=== PATIENT | male | born 1945 | race Caucasian/White ===

== ENCOUNTER 2020-11-17 10:23 | Outpatient (REF) | payer MEDICARE, SELFPAY ==
[2020-11-17 10:52] LABS: Alanine Aminotransferase 17 U/L (0-40); Albumin Level 4.1 g/dL (3.5-5.0); Alkaline Phosphatase 90 U/L (39-117); Aspartate Amino Transferase 17 U/L (5-37); Bilirubin Direct 0.2 mg/dL (0.0-0.5); Bilirubin Total 0.5 mg/dL (0.0-1.0); Cholesterol 195 mg/dL; HDL Cholesterol 59 mg/dL; LDL Cholesterol Calculated 57 mg/dl; Total Protein 6.9 g/dL (6.5-8.0); Triglycerides 395 mg/dL
[2020-11-17 11:14] LABS: Reflex LDLD? No
== END 2020-11-17 10:24 | disposition home or self-care (01) ==
LOC: HO.LNP 10:23
PROVIDERS: Visit Provider Internal Medicine
DX: E78.00 Pure hypercholesterolemia, unspecified (principal)
CPT/HCPCS: 80061; 80076

== ENCOUNTER 2021-05-16 10:26 | Outpatient (REF) | payer MEDICARE, SELFPAY ==
[2021-05-16 10:51] LABS: Basophils Percent Auto 0.6 % (0-2); Eosinophils Absolute Auto 0.2 X10*3/uL (0.0-0.4); Eosinophils Percent Auto 3.2 % (0-4); Hematocrit 51.2 % (42.0-52.0); Hemoglobin 16.5 g/dl (14.0-18.0); Imm Gran Abs Auto 0.02 X10*3/uL (0.00-0.03); Imm Gran Pct Auto 0.3 % (0.0-0.4); Lymphocytes Absolute Auto 1.7 X10*3/uL (1.2-4.9); Lymphocytes Percent Auto 27.3 % (20-40); MANUAL DIFF FLAG SCAN; Mean Corpuscular HGB Conc 32.2 g/dl (31.0-36.0); Mean Corpuscular Hemoglobin 30.1 pg (27.0-33.0); Mean Corpuscular Volume 93.4 fL (80.0-98.0); Monocytes Absolute Auto 0.6 X10*3/uL (0.1-1.2); Monocytes Percent Auto 9.1 % (2-11); Neutrophils Absolute Auto 3.7 x10*3/uL (2.0-8.3); Neutrophils Percent Auto 59.5 % (45-73); PLT CLUMP 1; Red Blood Count 5.48 X10*6/uL (4.60-5.80); Red Cell Distribution Width 14.5 % (11.0-16.0); SCAN SMEAR FLAG 1
[2021-05-16 10:52] LABS: Appearance Urine CLEAR; Color Urine YELLOW; Glucose Urine UA NEG (NEG); Leukocyte Esterase Urine NEG (NEG); Nitrite Urine NEG (NEG); Specific Gravity - Urine >= 1.030 (1.005-1.025); Urine Blood TRACE (NEG); Urine Ketones NEG (NEG); Urine Protein 2+ MG/DL (NEG-TRACE)
[2021-05-16 11:00] LABS: Estimated Average Glucose 123 mg/dL; Hemoglobin A1c % 5.9 %
[2021-05-16 11:06] LABS: Alanine Aminotransferase 22 U/L (0-40); Albumin Level 4.2 g/dL (3.5-5.0); Alkaline Phosphatase 90 U/L (39-117); Anion Gap 16 (12-20); Aspartate Amino Transferase 26 U/L (5-37); Bilirubin Total 0.6 mg/dL (0.0-1.0); Blood Urea Nitrogen 16 mg/dL (9-16); Calcium 9.6 mg/dL (8.4-10.2); Carbon Dioxide 23 mmol/L (22-29); Chloride 103 mmol/L (96-108); Cholesterol 175 mg/dL; Estimated Glomerular Filt Rate > 60; Glucose Fasting 128 mg/dL (60-99); HDL Cholesterol 52 mg/dL; LDL Cholesterol Calculated 67 mg/dl; Potassium 4.7 mmol/L (3.3-5.1); Sodium 137 mmol/L (135-145); Total Protein 7.4 g/dL (6.5-8.0); Triglycerides 280 mg/dL
[2021-05-16 11:09] LABS: Mucus Urine TRACE /LPF; RBC Urine 0-2 /HPF (0); Squamous Epithelial Cell Urine TRACE /LPF; WBC Urine 0 /HPF (0-4)
[2021-05-16 11:12] LABS: White Blood Count 6.3 X10*3/uL (4.8-10.8)
[2021-05-16 11:24] LABS: Creatinine Urine 139.79 mg/dL
[2021-05-16 11:31] LABS: PSA,Total (Free>4and<10) < 0.05 ng/mL (0.00-4.00)
[2021-05-16 11:46] LABS: Microalbum/Creatinine Ratio Ur 1109.5 ug/mg cr
[2021-05-16 14:41] LABS: SLIDE REVIEW VERIFIED
== END 2021-05-16 10:27 | disposition home or self-care (01) ==
LOC: HO.LNP 10:26
PROVIDERS: Visit Provider Internal Medicine
DX: Z12.5 Encounter for screening for malignant neoplasm of prostate (principal); I10 Essential (primary) hypertension; R73.03 Prediabetes; R80.9 Proteinuria, unspecified; E78.00 Pure hypercholesterolemia, unspecified
CPT/HCPCS: 80053; 80061; 81001; 82043; 83036; 84153; 85025

== ENCOUNTER 2021-05-22 14:20 | Outpatient (REF) | payer MEDICARE, SELFPAY ==
[2021-05-22 14:26] LABS: MANUAL DIFF FLAG NO
[2021-05-22 14:55] LABS: Basophils Percent Auto 0.6 % (0-2); Eosinophils Absolute Auto 0.2 X10*3/uL (0.0-0.4); Eosinophils Percent Auto 3.5 % (0-4); Hematocrit 48.6 % (42.0-52.0); Hemoglobin 16.1 g/dl (14.0-18.0); Imm Gran Abs Auto 0.03 X10*3/uL (0.00-0.03); Imm Gran Pct Auto 0.4 % (0.0-0.4); Lymphocytes Percent Auto 29.1 % (20-40); Mean Corpuscular HGB Conc 33.1 g/dl (31.0-36.0); Mean Corpuscular Hemoglobin 30.2 pg (27.0-33.0); Mean Corpuscular Volume 91.2 fL (80.0-98.0); Mean Platelet Volume 10.5 fL (9.4-12.4); Monocytes Absolute Auto 0.7 X10*3/uL (0.1-1.2); Monocytes Percent Auto 9.6 % (2-11); Neutrophils Absolute Auto 3.9 x10*3/uL (2.0-8.3); Neutrophils Percent Auto 56.8 % (45-73); Platelet Count 252 X10*3/uL (160-400); Platelet Count (Citrate) 175 X10*3/uL (150-310); Red Blood Count 5.33 X10*6/uL (4.60-5.80); Red Cell Distribution Width 14.7 % (11.0-16.0); White Blood Count 6.9 X10*3/uL (4.8-10.8)
== END 2021-05-22 14:21 | disposition home or self-care (01) ==
LOC: HO.LNP 14:20
PROVIDERS: Visit Provider Internal Medicine
DX: D69.6 Thrombocytopenia, unspecified (principal)
CPT/HCPCS: 85025

== ENCOUNTER 2021-11-16 10:31 | Outpatient (REF) | payer MEDICARE, SELFPAY ==
[2021-11-16 10:58] LABS: Estimated Average Glucose 126 mg/dL
[2021-11-16 10:59] LABS: Alanine Aminotransferase 25 U/L (0-40); Albumin Level 4.2 g/dL (3.5-5.0); Alkaline Phosphatase 91 U/L (39-117); Aspartate Amino Transferase 21 U/L (5-37); Bilirubin Direct 0.2 mg/dL (0.0-0.5); Bilirubin Total 0.3 mg/dL (0.0-1.0); Cholesterol 172 mg/dL; Glucose Fasting 132 mg/dL (60-99); HDL Cholesterol 58 mg/dL; LDL Cholesterol Calculated 52 mg/dl; Total Protein 7.1 g/dL (6.5-8.0); Triglycerides 311 mg/dL
[2021-11-16 11:13] LABS: Reflex LDLD? No
== END 2021-11-16 10:32 | disposition home or self-care (01) ==
LOC: HO.LNP 10:31
PROVIDERS: Visit Provider Internal Medicine
DX: E78.00 Pure hypercholesterolemia, unspecified (principal); R73.03 Prediabetes
CPT/HCPCS: 80061; 80076; 82947; 83036

== ENCOUNTER 2022-05-18 10:55 | Outpatient (REF) | payer MEDICARE, SELFPAY ==
[2022-05-18 10:59] LABS: MANUAL DIFF FLAG NO
[2022-05-18 11:49] LABS: Appearance Urine Clear; Color Urine Yellow; Glucose Urine UA Negative (Negative); Leukocyte Esterase Urine Negative (Negative); Nitrite Urine Negative (Negative); PH 6.5 (5.0-9.0); UMIC TRIGGER UACC YES; Urine Blood Negative (Negative); Urine Ketones Negative (Negative); Urine Protein 100 (2+) mg/dL (Neg-Trace)
[2022-05-18 11:54] LABS: Bacteria Urine None Seen (None Seen); Hyaline Casts Urine 0-2 /LPF (0-2); RBC Urine 0-2 /HPF (0-2); Squamous Epithelial Cell Urine 0-2 /HPF (0-2); WBC Urine 0-5 /HPF (0-5)
[2022-05-18 11:57] LABS: Basophils Percent Auto 0.5 % (0-2); Eosinophils Absolute Auto 0.3 X10*3/uL (0.0-0.4); Hematocrit 49.1 % (42.0-52.0); Hemoglobin 15.8 g/dl (14.0-18.0); Imm Gran Abs Auto 0.04 X10*3/uL (0.00-0.03); Imm Gran Pct Auto 0.5 % (0.0-0.4); Lymphocytes Absolute Auto 1.9 X10*3/uL (1.2-4.9); Lymphocytes Percent Auto 22.4 % (20-40); Mean Corpuscular HGB Conc 32.2 g/dl (31.0-36.0); Mean Corpuscular Hemoglobin 29.2 pg (27.0-33.0); Mean Corpuscular Volume 90.8 fL (80.0-98.0); Mean Platelet Volume 10.4 fL (9.4-12.4); Monocytes Absolute Auto 0.9 X10*3/uL (0.1-1.2); Monocytes Percent Auto 10.3 % (2-11); Neutrophils Absolute Auto 5.3 x10*3/uL (2.0-8.3); Neutrophils Percent Auto 63.3 % (45-73); Platelet Count 241 X10*3/uL (160-400); Red Blood Count 5.41 X10*6/uL (4.60-5.80); Red Cell Distribution Width 14.6 % (11.0-16.0); White Blood Count 8.4 X10*3/uL (4.8-10.8)
[2022-05-18 12:23] LABS: Estimated Average Glucose 123 mg/dL; Hemoglobin A1c % 5.9 %
[2022-05-18 12:35] LABS: Alanine Aminotransferase 19 U/L (0-40); Alkaline Phosphatase 94 U/L (39-117); Anion Gap 13 (12-20); Aspartate Amino Transferase 15 U/L (5-37); Bilirubin Total 0.5 mg/dL (0.0-1.0); Blood Urea Nitrogen 22 mg/dL (9-16); Calcium 8.9 mg/dL (8.4-10.2); Carbon Dioxide 29 mmol/L (22-29); Chloride 106 mmol/L (96-108); Cholesterol 167 mg/dL; Estimated Glomerular Filt Rate > 60; Glucose Fasting 121 mg/dL (60-99); HDL Cholesterol 49 mg/dL; LDL Cholesterol Calculated 58 mg/dl; Potassium 4.4 mmol/L (3.3-5.1); Sodium 144 mmol/L (135-145); Total Protein 6.9 g/dL (6.5-8.0); Triglycerides 302 mg/dL
[2022-05-18 12:53] LABS: PSA,Total (Free>4and<10) < 0.10 ng/mL (0.00-4.00)
[2022-05-18 12:57] LABS: Creatinine Urine 88.18 mg/dL
[2022-05-18 13:12] LABS: Microalbum/Creatinine Ratio Ur 1005.8 ug/mg cr
== END 2022-05-18 10:56 | disposition home or self-care (01) ==
LOC: HO.LNP 10:55
PROVIDERS: Visit Provider Internal Medicine
DX: Z12.5 Encounter for screening for malignant neoplasm of prostate (principal); I10 Essential (primary) hypertension; R73.03 Prediabetes; R80.9 Proteinuria, unspecified; E78.00 Pure hypercholesterolemia, unspecified; D69.6 Thrombocytopenia, unspecified
CPT/HCPCS: 80053; 80061; 81001; 81003; 82043; 83036; 84153; 85025

== ENCOUNTER 2023-01-11 12:23 | Outpatient (REF) | payer MEDICARE, SELFPAY ==
[2023-01-11 13:28] LABS: Estimated Average Glucose 128 mg/dL; Hemoglobin A1c % 6.1 % (<6.0)
[2023-01-11 13:40] LABS: Alanine Aminotransferase 30 U/L (0-40); Albumin Level 3.9 g/dL (3.5-5.0); Alkaline Phosphatase 86 U/L (39-117); Aspartate Amino Transferase 26 U/L (5-37); Bilirubin Direct 0.2 mg/dL (0.0-0.5); Bilirubin Total 0.5 mg/dL (0.0-1.0); Glucose Fasting 129 mg/dL (60-99); Total Protein 7.1 g/dL (6.5-8.0)
[2023-01-11 13:41] LABS: Cholesterol 184 mg/dL (<200); HDL Cholesterol 52 mg/dL (>40); Triglycerides 409 mg/dL (<150)
[2023-01-11 15:52] LABS: Reflex LDLD? Yes
[2023-01-12 09:58] LABS: LDL Cholesterol Direct 73 mg/dL (<100)
== END 2023-01-11 12:24 | disposition home or self-care (01) ==
LOC: HO.LNP 12:23
PROVIDERS: Visit Provider Internal Medicine
DX: E78.00 Pure hypercholesterolemia, unspecified (principal); R73.09 Other abnormal glucose
CPT/HCPCS: 80061; 80076; 82947; 83036; 83721

== ENCOUNTER 2023-07-12 11:41 | Outpatient (REF) | payer MEDICARE, SELFPAY ==
[2023-07-12 11:44] LABS: MANUAL DIFF FLAG NO
[2023-07-12 11:54] LABS: Basophils Percent Auto 0.5 % (0-2); Eosinophils Absolute Auto 0.2 X10*3/uL (0.0-0.4); Eosinophils Percent Auto 2.5 % (0-4); Hematocrit 52.3 % (42.0-52.0); Imm Gran Abs Auto 0.03 X10*3/uL (0.00-0.03); Imm Gran Pct Auto 0.4 % (0.0-0.4); Lymphocytes Absolute Auto 2.3 X10*3/uL (1.2-4.9); Lymphocytes Percent Auto 28.7 % (20-40); Mean Corpuscular HGB Conc 32.5 g/dl (31.0-36.0); Mean Corpuscular Volume 92.4 fL (80.0-98.0); Mean Platelet Volume 10.9 fL (9.4-12.4); Monocytes Absolute Auto 0.7 X10*3/uL (0.1-1.2); Monocytes Percent Auto 8.3 % (2-11); Neutrophils Absolute Auto 4.8 x10*3/uL (2.0-8.3); Neutrophils Percent Auto 59.6 % (45-73); Platelet Count 242 X10*3/uL (160-400); Red Blood Count 5.66 X10*6/uL (4.60-5.80); Red Cell Distribution Width 14.6 % (11.0-16.0)
[2023-07-12 11:57] LABS: Appearance Urine Clear; Color Urine Yellow; Glucose Urine UA Negative (Negative); Leukocyte Esterase Urine Negative (Negative); Nitrite Urine Negative (Negative); PH 5.5 (5.0-9.0); UMIC TRIGGER UACC YES; Urine Blood Negative (Negative); Urine Ketones Negative (Negative); Urine Protein 300 (3+) mg/dL (Neg-Trace)
[2023-07-12 12:03] LABS: Bacteria Urine None Seen (None Seen); Hyaline Casts Urine 0-2 /LPF (0-2); RBC Urine 0-2 /HPF (0-2); Squamous Epithelial Cell Urine 0-2 /HPF (0-2); WBC Urine 0-5 /HPF (0-5)
[2023-07-12 12:19] LABS: Estimated Average Glucose 131 mg/dL; Hemoglobin A1c % 6.2 % (<6.0)
[2023-07-12 12:44] LABS: Alanine Aminotransferase 52 U/L (0-40); Albumin Level 4.3 g/dL (3.5-5.0); Alkaline Phosphatase 94 U/L (39-117); Anion Gap 12 (12-20); Aspartate Amino Transferase 35 U/L (5-37); Bilirubin Total 0.6 mg/dL (0.0-1.0); Blood Urea Nitrogen 18 mg/dL (9-16); Calcium 9.6 mg/dL (8.4-10.2); Carbon Dioxide 28 mmol/L (22-29); Chloride 102 mmol/L (96-108); Cholesterol 138 mg/dL (<200); Estimated Glomerular Filt Rate > 60; Glucose Fasting 98 mg/dL (60-99); HDL Cholesterol 50 mg/dL (>40); LDL Cholesterol Calculated 49 mg/dL (<100); Sodium 138 mmol/L (135-145); Total Protein 7.8 g/dL (6.5-8.0); Triglycerides 199 mg/dL (<150)
[2023-07-12 13:02] LABS: PSA,Total (Free>4and<10) < 0.10 ng/mL (0.00-4.00)
[2023-07-12 13:09] LABS: Microalbum/Creatinine Ratio Ur 734.6 ug/mg cr (<30)
== END 2023-07-12 11:42 | disposition home or self-care (01) ==
LOC: HO.LNP 11:41
PROVIDERS: Visit Provider Internal Medicine
DX: Z00.00 Encounter for general adult medical examination without abnormal findings (principal); Z12.5 Encounter for screening for malignant neoplasm of prostate; I10 Essential (primary) hypertension; R73.03 Prediabetes; R80.9 Proteinuria, unspecified; E78.00 Pure hypercholesterolemia, unspecified; D69.6 Thrombocytopenia, unspecified
CPT/HCPCS: 80053; 80061; 81001; 82043; 82570; 83036; 84153; 85025

== ENCOUNTER 2024-01-20 11:03 | Outpatient (REF) | payer MEDICARE, SELFPAY ==
[2024-01-20 12:07] LABS: Estimated Average Glucose 134 mg/dL; Hemoglobin A1C 196.1953 umol/L; Hemoglobin A1c % 6.3 % (<6.0); Total Hemoglobin (HGBA1C) 4291.7867 umol/L
[2024-01-20 13:24] LABS: Alanine Aminotransferase 32 U/L (0-40); Alkaline Phosphatase 86 U/L (39-117); Aspartate Amino Transferase 41 U/L (5-37); Bilirubin Direct 0.2 mg/dL (0.0-0.5); Bilirubin Total 0.5 mg/dL (0.0-1.0); Cholesterol 181 mg/dL (<200); Glucose Fasting 157 mg/dL (60-99); HDL Cholesterol 63 mg/dL (>40); LDL Cholesterol Calculated 68 mg/dL (<100); Total Protein 7.3 g/dL (6.5-8.0); Triglycerides 251 mg/dL (<150)
[2024-01-20 15:15] LABS: Reflex LDLD? No
== END 2024-01-20 11:04 | disposition home or self-care (01) ==
LOC: HO.LNP 11:03
PROVIDERS: Visit Provider Internal Medicine
DX: E78.00 Pure hypercholesterolemia, unspecified (principal); R73.09 Other abnormal glucose
CPT/HCPCS: 80061; 80076; 82947; 83036

== ENCOUNTER 2024-06-09 09:44 | Outpatient (REF) | payer MEDICARE, SELFPAY ==
--- OUTSIDE RECORDS SUMMARY | 2024-06-09 11:02 | XMS_ITS | Encounter Summary ---
Author Organization [facility] Address [address] [place] [address] Care Team Providers Care Circus Train Supervisor Name Role Phone Unavailable Primary Care Provider Unavailabl e Encounter Details Date Type Department Care Team (Late st Contact Info) Description 12/19/2023 2:17 PM EDT Hospital Encounter TH HISTORIC ENCOUNTERS EASTERN CONVERSION ONLY Cervicalgia Social History Tobacco Use Types Packs/Day Years Used Date Smoking Tobacco: Never Assessed Sex and Gender Information Value Date Recorded Sex Assigned at Not on file Legal Sex Male 7:21 PM EDT Gender Identity Not on file Sexual Orientation Not on file documented as of this encounter Plan of Treatment Not on file documented as of this encounter Procedures Procedure Name Priority Date/Time Associated Diagnosis Comments XR CERVICAL SPINE AP, LAT, FLEXION \T\ EXTENSION Routine 12/19/2023 2:53 PM EDT Cervicalgia documented in this encounter Results * XR CERVICAL SPINE AP, LAT, FLEXION \T\ EXTENSION (12/19/2023 2:53 PM EDT) Anatomical Region Laterality Modality Radiographic Regina ging 12/19/2023 2:09 PM EDT Narrative 12/19/2023 3:04 PM EDT X-ray cervical spine AP lateral flexion extension Neck pain No prior FINDINGS: Degenerative changes without instability. ??Facet arthrosis and degenerative disc disease noted. ??The lung apices are clear. ??The odontoid process shows no evidence of fracture. The lateral masses of C1 are normal in orientation without evidence of widening.. ??Likely prominent vascular structure at the right apex of lung. ??The bones are osteopenic. IMPRESSION: Degenerative spondylosis and osteopenia without instability Report reviewed and signed by : Dr. Wilder Tracy MD on 12/19/2023 3:04 PM. Workstation Name - [id number] Procedure Note Wilder Tracy MD - 01/13/2024 X-ray cervical spine AP lateral flexion extension Neck pain No prior FINDINGS: Degenerative changes without instability. Facet arthrosis anddegenerative disc disease noted. The lung apices are clear. The odontoidprocess shows no evidence of fracture. The lateral masses of C1 are normalin orientation without evidence of widening.. Likely prominent vascularstructure at the right apex of lung. The bones are osteopenic. IMPRESSION: Degenerative spondylosis and osteopenia without instability Report reviewed and signed by : Dr. Wilder Tracy MD on 43:04 PM. Workstation Name - [id number] Ya-Ling Lo IMG XR PROCEDURES Final Result documented in this encounter Visit Diagnoses Diagnosis Cervicalgia documented in this encounter
--- OUTSIDE RECORDS SUMMARY | 2024-06-09 11:02 | XMS_ITS | Clinical Summary ---
Author Organization [facility] Address [address] [place] [address] Care Team Providers Care Director Sterile Processing Name Role Phone Unavailable Primary Care Provider Unavailabl e Social History Tobacco Use Types Packs/Day Years Used Date Smoking Tobacco: Never Assessed Sex and Gender Information Value Date Recorded Sex Assigned at Not on file Legal Sex Male 7:21 PM EDT Gender Identity Not on file Sexual Orientation Not on file Plan of Treatment Health Maintenance Due Date Last Done Comments DTaP,Tdap,and Td Vaccines (1 - Tdap) 08/18/1962 Pneumococcal Vaccine: 50+ Ye ars (1 of 1 - PCV) 08/18/1993 Zoster Vaccines (1 of 2) 08/18/1993 RSV Immunization Patients 60 + Years Old (1 - 1-dose 75+ series) 08/18/2018 COVID-19 Vaccine ( - 2023-2 5 season) 2023 Influenza Vaccine (#1) 2023 Cholesterol Screening (Lipid Panel) 01/12/2024 Depression Screening 01/12/2024 Falls Risk Assessment 01/12/2024 Social Influencers of Health Screening 01/12/2024 HIB Vaccines Aged Out No longer eligi ble based on patient's age to complete this topic HPV Vaccines Aged Out No longer eligi ble based on patient's age to complete this topic Hepatitis A Vaccines Aged Out No long er eligible based on patient's age to complete this topic Hepatitis B Vaccines Aged Out No long er eligible based on patient's age to complete this topic IPV Vaccines Aged Out No longer eligi ble based on patient's age to complete this topic MMR Vaccines Aged Out No longer eligi ble based on patient's age to complete this topic Meningococcal ACWY Vaccine Aged Out N o longer eligible based on patient's age to complete this topic Meningococcal B Vacine Aged Out No lo nger eligible based on patient's age to complete this topic RSV Immunization Patients Un estefani 20 months Aged Out No longer eligible b ased on patient's age to complete this topic Varicella Vaccines Aged Out No longer eligible based on patient's age to complete this topic
--- OUTSIDE RECORDS SUMMARY | 2024-06-09 11:02 | XMS_ITS | Clinical Summary ---
Author Organization [facility] Address [address] [place] [address] Care Team Providers Care Laborer Shaft Sinking Name Role Phone Unknown, Primary Care Provider Unavailabl e Social History Tobacco Use Types Packs/Day Years Used Date Smoking Tobacco: Never Assessed Sex and Gender Information Value Date Recorded Sex Assigned at Not on file Gender Identity Not on file Sexual Orientation Not on file Job Start Date Occupation Industry Not on file Not on file Not on file Plan of Treatment Health Maintenance Due Date Last Done Comments COVID-19 Vaccine (#1) 02/18/1944 Depression Screening 1955 Preventative Health Evaluation 08/18/1961 DTap / Tdap / Td (1 - Tdap) 08/18/1962 Shingrix-Zoster Vaccine (1 of 2) 08/18/1993 Fall Risk Assessment 08/18/2008 Pneumococcal Vaccine (1 of 1 - PCV) 08/18/2008 RSV Adult > 60+ Yrs or Pregn ant (1 - 1-dose 75+ series) 08/18/2018 Influenza Vaccine (#1) 2023 Hepatitis B Vaccines Aged Out No long er eligible based on patient's age to complete this topic RSV Ped < 20 months Aged Out No longe r eligible based on patient's age to complete this topic Care Teams Laborer Shaft Sinking Relationship Specialty Start Date End Date Unknown, PCP - General 12/19/23
--- OUTSIDE RECORDS SUMMARY | 2024-06-09 11:02 | XMS_ITS | Encounter Summary ---
Author Organization [facility] Address [address] [place] [address] Care Team Providers Care Manager Security Name Role Phone Unavailable Primary Care Provider Unavailabl e Encounter Details Date Type Department Care Team (Latest Contact Info) Description 12/19/2023 2:17 PM EDT Hospital Encounter TH HISTORIC ENCOUNTERS EASTERN CONVERSION ONLY Pain in thoracic spine Social History Tobacco Use Types Packs/Day Years [...] Name Priority Date/Time Associated Diagnosis Comments XR THORACIC SPINE AP \T\ LAT Routine 12/19/2023 2:52 PM EDT Pain in thoracic spine documented in this encounter Results * XR THORACIC SPINE AP \T\ LAT (12/19/2023 2:52 PM EDT) Anatomical Region Laterality Modality Radiographic Regina ging 12/19/2023 2:10 PM EDT Narrative 12/19/2023 3:08 PM EDT X-ray thoracic spine AP lateral Back pain Prior: None FINDINGS: Degenerative disc disease noted with anterior syndesmophytes. ??Bones are osteopenic. ??The intrathoracic structures are unremarkable. ??No evidence of destructive lesion, fracture or subluxation. IMPRESSION: Osteopenia and diffuse degenerative spondylosis No fracture, subluxation or destructive lesion Report reviewed and signed by : Dr. Wilder Tracy MD on 12/19/2023 3:08 PM. Workstation Name - [id number] Procedure Note Wilder Tracy MD - 01/13/2024 X-ray thoracic spine AP lateral Back pain Prior: None FINDINGS: Degenerative disc disease noted with anterior syndesmophytes. Bones areosteopenic. The intrathoracic structures are unremarkable. No evidenceof destructive lesion, fracture or subluxation. IMPRESSION: Osteopenia and diffuse degenerative spondylosis No fracture, subluxation or destructive lesion Report reviewed and signed by : Dr. Wilder Tracy MD on 43:08 PM. Workstation Name - [id number] Ya-Ling Lo IMG XR PROCEDURES Final Result documented in this encounter Visit Diagnoses Diagnosis Pain in thoracic spine documented in this encounter
--- OUTSIDE RECORDS SUMMARY | 2024-06-09 11:03 | XMS_ITS ---
Author Organization James Solano MD Address [address] [place] [phone] Care Team Providers Care Fruit Preserver Name Role Phone James Solano Primary Care Provider Allergies No Known Allergies REASON FOR VISIT 6 MO F/U Medications Medication SIG (Take, Route, Frequency, Duration) Notes Start Date End Date Status Rosuvastatin Calcium 40 MG TAKE 1 TABLET EVERY DAY Orally Once a day Active Omeprazole 20 MG TAKE 1 CAPSULE EVERY DAY Orally Once a day for 90 days Active Aspirin Adult Low Strength 81 MG 1 tablet Orally Once a day for 90 days Active Valsartan-hydroCHLOROthiazi de 320-12.5 MG 1 tablet Orally Once a day Active amLODIPine Besylate 10 MG 1 tablet Orall y Once a day Active Venlafaxine HCl ER 75 MG 1 capsule with food Orally Once a day for 90 days Active Vital Signs Blood pressure systolic 174 mm Hg 01/28/20 24 Blood pressure diastolic 88 mm Hg 024 Height 68 in 01/28/2024 Weight 254 lbs 01/28/2024 BMI 38.62 kg/m2 01/28/2024 weight is up 12 pounds since 5-24 Encounters Encounter Location Date Provider Diagnosis James Solano MD [address] [place] [address] [place] [phone] 01/28/2024 James Solano Prediabetes R73.09 ; Essential hypertension I10 and Pure hypercholesterolemia E78.00 Assessments Encounter Date Diagnosis (ICD Code) Assessment Notes Treatment Notes Treatment Clinical Notes Section Notes 01/28/2024 Prediabetes (ICD-10 - R73.09) needs to go on diet again. will continue to monitor 01/28/2024 Essential hypertensi on (ICD-10 - I10) running a little high, will continue current reiment and will continue to monitor 01/28/2024 Pure hypercholesterolemia (ICD-10 - E78.00) stable, will contiue current regiment Plan Of Treatment Medication Medication Name Sig Start Date Stop Date Notes Valsartan-hydroCHLOROthiazid e 320-12.5 MG 1 tablet Orally Once a day amLODIPine Besylate 10 MG 1 tablet Orally Once a day Treatment Notes Assessment Notes Prediabetes needs to go on diet again. will continue to monitor Essential hypertension running a little high, will continue current reiment and will continue to monitor Pure hypercholesterolemia stable, will c ontiue current regiment Next Appt Details Provider Name:James burgess, 07/14/2024 08:00:00 AM, [address] [place] [address], [address], [phone], Provider Name:James burgess, 07/21/2024 11:00:00 AM, [address] [place] [address], [address], [phone], Progress Notes * Jordon FARLEYDOB: [birth year] (78 yo M)Acc No.[id number]:01/28/2024 Progress Notes Patient:?Jordon Farley Provider:?James Solano MD :1945???Age:78 Y???Sex:Male Shahid e:01/28/2024 Address:[facility] [address] [facility] [place], [id number] Subjective: * Chief Complaints: * ???6 MO F/U * HPI: ???Symptom(s):? patient is a 78 yo male here for 6 month follow up visit. gaining weight. off ozempic and is stipped. * ROS:?General/Constitutional:?Denies?Chills.?Denies?Fatigue.?Denies?Fever.?Denies?Headache.?ENT:?Patient denies?decreased sense of smell , any loss of taste , sore throat.?Denies?Sore throat.?Respiratory:?Denies?Cough.?Denies?Shortness of breath at rest.?Denies?Shortness of breath with exertion.?Gastrointestinal:?Denies?Diarrhea.?Denies?Nausea.?Musculoskeletal:?Patient denies?muscle aches.?Peripheral Vascular:?Patient denies?red and blue toes.? * Medical History:? * Surgical History:? * Hospitalization/Major Diagno stic Procedure:? * Medications:?TakingVenlafaxi ne HCl ER 75 MG Capsule Extended Release 24 Hour 1 capsule with food Orally Once a dayAspirin Adult Low Strength 81 MG Tablet Delayed Release 1 tablet Orally Once a dayOmeprazole 20 MG Capsule Delayed Release TAKE 1 CAPSULE EVERY DAY Orally Once a dayamLODIPine Besylate 10 MG Tablet 1 tablet Orally Once a dayValsartan-hydroCHLOROthiazide 320-12.5 MG Tablet 1 tablet Orally Once a dayRosuvastatin Calcium 40 MG Tablet TAKE 1 TABLET EVERY DAY Orally Once a dayMedication List reviewed and reconciled with the patientTaking Venlafaxine HCl ER 75 MG Capsule Extended Release 24 Hour 1 capsule with food Orally Once a dayTaking Aspirin Adult Low Strength 81 MG Tablet Delayed Release 1 tablet Orally Once a dayTaking Omeprazole 20 MG Capsule Delayed Release TAKE 1 CAPSULE EVERY DAY Orally Once a dayTaking amLODIPine Besylate 10 MG Tablet 1 tablet Orally Once a dayTaking Valsartan-hydroCHLOROthiazide 320-12.5 MG Tablet 1 tablet Orally Once a dayTaking Rosuvastatin Calcium 40 MG Tablet TAKE 1 TABLET EVERY DAY Orally Once a dayMedication List reviewed and reconciled with the patient * Allergies:?N.K.D.A.yes[Aller gies Verified] Objective: * Vitals:?Ht: 68, Wt:254, BMI: 38.62, BP:174/88, Repeat BP:144/78 weight is up 12 pounds since 07-19-23. * ???Past Orders: ???Lab:Lipid Panel with Refl ex (Order Date - 01/20/2024) (Collection Date - 01/20/2024) ? Value Reference Range ?Triglycerides 251 H <150 - mg/dL ?Cholesterol 181 <200 - m g/dL ?LDL Cholesterol Calculated 68 <100 - mg/dL ?HDL Cholesterol 63 >40 - mg/dL ???Lab:Hemoglobin A1c (Order Date - 01/20/2024) (Collection Date - 01/20/2024) ? Value Reference Range ?Hemoglobin A1c % 6.3 H <6. 0 - % ?Estimated Average Glucose 134 - mg/dL ???Lab:Liver Panel (Order Da te 01/20/2024) (Collection Date - 01/20/2024) ? Value Reference Range ?Bilirubin Total 0.5 0.0- 1.0 - mg/dL ?Bilirubin Direct 0.2 0.0 -0.5 - mg/dL ?Aspartate Amino Transferase 41 H 5-37 - U/L ?Alanine Aminotransferase 32 0-40 - U/L ?Total Protein 7.3 6.5-8. 0 - g/dL ?Albumin Level 4.0 3.5-5. 0 - g/dL ?Alkaline Phosphatase 86 39-117 - U/L ???Lab:Glucose Fasting (Orde r Date - 01/20/2024) (Collection Date - 01/20/2024) ? Value Reference Range ?Glucose Fasting 157 H 60-9 9 - mg/dL * Examination: ???General Examination: ?GENERAL APPEARANCE:?alert, well hydrated, in no distress.?HEAD:?normocephalic.?SKIN:?good turgor.?HEART:?no murmurs, rubs, gallops , regular rate and rhythm.?LUNGS:?no wheezes, rales, rhonchi , good air movement , clear to auscultation bilaterally.? Assessment: * Assessment: 1.?Prediabetes - R73.09 (Jyoti glynn)?2.?Essential hypertension - I10?3.?Pure hypercholesterolemia - E78.00? Plan: * Treatment: 2.?Essential hypertension? Continue amLODIPine Besylate Tablet, 10 MG, 1 tablet, Orally, Once a day;?Continue Valsartan-hydroCHLOROthiazide Tablet, 320-12.5 MG, 1 tablet, Orally, Once a day.?? Notes: running a little high, will continue current reiment and will continue to monitor?? 3.?Pure hypercholesterolemia ? Notes: stable, will contiue current regiment?? * Procedure Codes:? * * Sign off status: Completed true * Provider:?James Solano MD Date:?1 03/29/2023 Generated for Maryan vargas/Melissa/eTransmitting on:?06/09/2024 11:02 AM EDT History and Physical Notes * HPI (History of Present Illness) Category Sub-Category Detail Notes Category Not es Symptom(s) patient is a 78 yo male here for 6 month follow up visit. gaining weight. off ozempic and is stipped Examination Category Sub-Category Detail Notes Category Not es General Examination GENERAL APPEARANCE: alert, w ell hydrated, in no distress HEAD: normocephalic HEART: no murmurs, rubs, ga llops , regular rate and rhythm LUNGS: no wheezes, rales, r honchi , good air movement , clear to auscultation bilaterally SKIN: good turgor
--- OUTSIDE RECORDS SUMMARY | 2024-06-09 11:03 | XMS_ITS | Encounter Summary ---
Author Organization [facility] Address [address] [place] [address] Care Team Providers Care Warrant Clerk Name Role Phone Unavailable Primary Care Provider Unavailabl e Encounter Details Date Type Department Care Team (Latest Contact Info) Description 12/19/2023 2:16 PM EDT Hospital Encounter TH HISTORIC ENCOUNTERS EASTERN CONVERSION ONLY Low back pain, unspecified Social History Tobacco Use Types Packs/Day Years [...] Name Priority Date/Time Associated Diagnosis Comments XR LUMBAR SPINE AP, LATERAL, FLEXION, AND EXTENSION Routine 12/19/2023 2:51 PM EDT Low back pain, unspecified documented in this encounter Results * XR LUMBAR SPINE AP, LATERAL, FLEXION, AND EXTENSION (12/19/2023 2:51 PM EDT) Anatomical Region Laterality Modality Radiographic Regina ging 12/19/2023 2:11 PM EDT Narrative 12/19/2023 3:06 PM EDT X-ray lumbar spine AP lateral flexion extension Back pain Prior: None FINDINGS: Diffuse facet arthrosis and degenerative disc disease without fracture, subluxation, instability or destructive lesion. ??If further evaluation is warranted correlation with noncontrast MRI of the lumbar spine performed. Lung bases, bowel gas pattern and bony pelvis show no acute process. ??Degenerative OA of the hips noted. IMPRESSION: Diffuse degenerative disc disease and facet arthrosis without evidence of, fracture or destructive lesion. ??If clinically warranted noncontrast MRI of the lumbar spine could be performed. Report reviewed and signed by : Dr. Wilder Tracy MD on 12/19/2023 3:06 PM. Workstation Name - [id number] Procedure Note Wilder Tracy MD - 01/13/2024 X-ray lumbar spine AP lateral flexion extension Back pain Prior: None FINDINGS: Diffuse facet arthrosis and degenerative disc disease without fracture,subluxation, instability or destructive lesion. If further evaluation iswarranted correlation with noncontrast MRI of the lumbar spineperformed. Lung bases, bowel gas pattern and bony pelvis show no acute process.Degenerative OA of the hips noted. IMPRESSION: Diffuse degenerative disc disease and facet arthrosis without evidence of,fracture or destructive lesion. If clinically warranted noncontrast MRIof the lumbar spine could be performed. Report reviewed and signed by : Dr. Wilder Tracy MD on 43:06 PM. Workstation Name - [id number] Ya-Ling Lo IMG XR PROCEDURES Final Result documented in this encounter Visit Diagnoses Diagnosis Low back pain, unspecified documented in this encounter
--- OUTSIDE RECORDS SUMMARY | 2024-06-09 11:03 | XMS_ITS ---
Author Organization James Solano MD Address [address] [place] [phone] Care Team Providers Care Mine Superintendent Name Role Phone James Solano Primary Care Provider Reason For Referral Reason please godfrey ziegler for hearing test Diagnosis 1 Hearing loss (H91.90 ) Referral Organization James Solano MD Referring Provider First Name James Referring Provider Last Name Xiomara Referring Provider Speciality Internal M edicine Referred Provider [facility], [facility] Referred Provider Specialty Audiologists General Notes Virginia Subramanian 0 05/14/2024 12:22:14 PM >patient is booking his own appt Referral Priority Routine REASON FOR VISIT hearing test orders Encounters Encounter Location Date Provider Diagnosis James Solano MD [address] [place] [phone] 05/12/2024Frank Solano Plan Of Treatment Referrals Referral Date Details 05/14/2024 05/14/2024, please e devante and treat for hearing test, [facility] Next Appt Details Provider Name:James Pope ier, 07/14/2024 08:00:00 AM, [address], [address], [place], [place], [phone], Provider Name:James Pope ier, 07/21/2024 11:00:00 AM, [address], [address], [place], [phone], Progress Notes * Jordon FARLEYDOB: [birth year] (78 yo M)Acc No.[id number]:05/12/2024 Patient:?Jordon FARLEY :1945???Age:78 Y???Sex:Male Address:[address] [place] [address] , [place] [address] Subjective: * Chief Complaints: * ???Hearing test orders * Medical History:? * Surgical History:? * Hospitalization/Major Diagno stic Procedure:? * Medications:? Objective: * Vitals:? * Physical Examination:? Assessment: Plan: * Treatment: * Procedure Codes:? * true * Date:? Generated for Maryan vargas/Melissa/eTransmitting on:?06/09/2024 11:02 AM EDT Consultation Request Notes Referral Date Referring Provider Referred Provider Not es 05/14/2024 James Solano [facility], [facility] please eval and treat for hearing test
--- OUTSIDE RECORDS SUMMARY | 2024-06-09 11:03 | XMS_ITS ---
Author Organization James Solano MD Address [address] [place] [phone] Care Team Providers Care Bag Machine Helper Name Role Phone James Solano Primary Care Provider REASON FOR VISIT HDF Immunizations Vaccine Route Administration Date Status Comme nts Influenza High Dose IM Intramuscular 01/24/2024 Administer ed Encounters Encounter Location Date Provider Diagnosis James Solano MD [address] [place] [phone] 01/24/2024 James Solano Encounter for immunization Z23 Assessments Encounter Date Diagnosis (ICD Code) Assessment Notes Treatment Notes Treatment Clinical Notes Section Notes 01/24/2024 Encounter for immunization (ICD-10 - Z23) Plan Of Treatment Next Appt Details Provider Name:James burgess, 07/14/2024 08:00:00 AM, [address], Suite [facility], [place], [place], [phone], Provider Name:James Pope ier, 07/21/2024 11:00:00 AM, [address], [address], [place], [phone], Progress Notes * Jordon FARLEYDOB: [birth year] (78 yo M)Acc No.[id number]:01/24/2024 Progress Note Patient:?Jordon FARLEY Provider:?James Solano MD :1945???Age:78 Y???Sex:Male Shahid e:01/24/2024 Address:[address] [place] [address] , [facility], [id number] Subjective: * Chief Complaints: * ???1. HDF. * Medical History:? Objective: * Vitals:? Assessment: * Assessment: 1.?Encounter for immunizatio n - Z23 (Primary)??? Plan: * Treatment: * Immunizations:? Influenza High Dose : 0.5 mL (Dose No:1) (Route: Intramuscular) given by Galina Helms , Office Staff on Left Deltoid * Procedure Codes:?76476 FLU V ACC PRSV FREE INC ANTIG, G0008 ADMN FLU VAC NO FEE SCHED SAME DAY * * The named appointment provid er may or may not be the originator of this progress note, and it is not deemed complete until electronically signed by the appointment provider. Sign off status: Pending * Provider:?James Solano MD Date:?03/25/2023 Generated for Maryan vargas/Melissa/eTransmitting on:?06/09/2024 11:02 AM EDT
== END 2024-06-09 09:45 | disposition home or self-care (01) ==
LOC: HO.SH 09:44
PROVIDERS: Visit Provider Internal Medicine
DX: Z01.118 Encounter for examination of ears and hearing with other abnormal findings (principal); H90.3 Sensorineural hearing loss, bilateral
CPT/HCPCS: 92557; 92567